=== PATIENT | female | born 2005 | race Hispanic/Latino ===

== ENCOUNTER → 2025-01-12 | Outpatient (CLI) | payer MEDICAID ==
--- NOTE | 2025-01-12 12:52 | EKG ---
[facility] Test Date: 2025-01-12 Test Time: 10:59:20 Pat Name: SEKOU MCKEON Department: LAB Room: Gender: F Manager Physical: [id number] : 2005 Requested By: MARCIAL WHEELER Order Number: [id number] Reading MD: Jorge Allison Measurements Intervals [place] Rate: 92 P: 64 NC: 140 QRS: 85 QRSD: 72 T: 29 QT: 346 QTc: 429 Interpretive Statements Sinus rhythm No previous ECG available for comparison Electronically Signed On 01-12-2025 18:06:10 CDT by Jorge Allison Please click the below link to view image of tracing.
== END | disposition home or self-care (01) ==
LOC: LAB 10:17
PROVIDERS: ATTEND Psychiatry & Neurology Psychiatry
DX: Z79.899 Other long term (current) drug therapy (principal)
CPT/HCPCS: 93005